=== PATIENT | female | born 1990 | race Caucasian/White ===

== ENCOUNTER 2021-05-13 23:25 | Outpatient (CLI) | payer OTHER | END 2021-05-14 03:50 | disposition home or self-care (01) | LOC: GENOP 23:25 | DX: O9A.212 Injury, poisoning and certain other consequences of external causes complicating pregnancy, second trimester (principal); S39.91XA Unspecified injury of abdomen, initial encounter; Z91.040 Latex allergy status; Z3A.27 27 weeks gestation of pregnancy; V89.2XXA Person injured in unspecified motor-vehicle accident, traffic, initial encounter | CPT/HCPCS: 59025; 81001; 99284 ==